=== PATIENT | female | born 1960 | race Asian ===

== ENCOUNTER 2017-09-11 18:57 | Emergency (ER) | payer SELFPAY ==
[~2017-09-11] VITALS: Ht 162.6 cm; Wt 56.7 kg
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
[2017-09-11 20:20] VITALS: BP 140/81
--- NOTE | 2017-09-12 09:50 | Diagnostic Imaging Report ---
Indication: PAIN, trauma Technique: XRAY CHEST 1 V Comparison: None. Findings: The cardiomediastinal silhouette is normal. The lungs are clear. There is no evidence of pleural fluid. The bones are unremarkable. Impression: Normal chest.
--- NOTE | 2017-09-21 17:58 | Cardiology Report ---
APPROVED REPORT EKG Measurement Heart [id number] Normal sinus rhythm Normal ECG
== END 2017-09-11 20:20 | disposition home or self-care (01) ==
LOC: EDBD 18:57 → EMR 19:30
DX: R07.81 Pleurodynia (principal); V43.62XA Car passenger injured in collision with other type car in traffic accident, initial encounter; Y92.410 Unspecified street and highway as the place of occurrence of the external cause
CPT/HCPCS: 71010; 93005; 99283